=== PATIENT | female | born 1995 | race American Indian/Alaskan Native ===

== ENCOUNTER 2021-03-22 12:42 | Emergency (ER) | payer SELFPAY ==
[2021-03-22 12:47] VITALS: BP 105/65
--- NOTE | 2021-03-22 13:41 | Emergency Department Report ---
ED Lower Extremity HPI - General Chief Complaint: Extremity Injury, Lower Stated Complaint: LFT LEG PAIN Time Seen by Provider: 03/22/21 13:06 Source: EMS Mode of arrival: Stretcher Limitations: No Limitations - History of Present Illness Initial Comments: The patient was evaluated in the emergency department for symptoms described in the history of present illness. He/she was evaluated in the context of the global COVID-19 pandemic, which necessitated consideration that the patient might be at risk for infection with the virus that causes COVID-19. Institutional protocols and algorithms that pertain to the evaluation of patients at risk for COVID-19 are in a state of rapid change based on information released by regulatory bodies including the CDC and federal and state organizations. These policies and algorithms were followed during the patient's care in the emergency department. Please note that these policies, procedures and recommendations changed on a rapid basis. 25-year-old -[place] female presents to the emergency room complaining of left ankle knee and left hip pain status post fall while doing her physical training in the 3 weeks ago. Patient states that she had an MRI and they told her she needed to go home and follow-up. Patient comes here to the emergency room. She did report she went to [facility] but they have no medical records of her. Therefore patient follows up here. Patient reports she was told that she needs surgery. Complaint: hip injury, knee injury, ankle injury Onset/Timin -: week(s) Injury: Hip: Left, Knee: Left, Ankle: Left Type of Injury: other (fall) Place: work Severity scale (0 -10): 8 Worsens With: weight bearing, movement, palpation Context: fall ED Review of Systems ROS: Stated complaint: LFT LEG PAIN Other details as noted in HPI Comment: All other systems reviewed and negative ED Past Medical Hx - Past Medical History Previous Medical History?: No - Surgical History Past Surgical History?: No ED Physical Exam - General Limitations: No Limitations General appearance: alert, in no apparent distress - Head Head exam: Present: atraumatic, normocephalic - Eye Eye exam: Present: normal appearance - ENT ENT exam: Present: mucous membranes moist - Neck Neck exam: Present: normal inspection, full ROM - Respiratory Respiratory exam: Absent: respiratory distress, accessory muscle use - Expanded Lower Extremity Exam Left Hip exam: Present: full ROM, tenderness Knee exam: Present: full ROM Lower Leg exam: Present: full ROM Ankle exam: Present: full ROM, tenderness, swelling Foot/Toe exam: Present: tenderness, swelling Neuro vascular tendon exam: Present: no vascular compromise - Back Exam Back exam: Present: normal inspection, full ROM - Neurological Exam Neurological exam: Present: alert, oriented X3 - Psychiatric Psychiatric exam: Present: normal affect, normal mood - Skin Skin exam: Present: warm, dry, intact, normal color. Absent: rash ED Course Vital Signs 03/22/21 12:44 Temperature 98.5 F Pulse Rate 74 Respiratory 16 Rate Blood Pressure 105/65 [Left] O2 Sat by Pulse 100 Oximetry ED Lower Extremity MDM - Radiology Data Radiology results: report reviewed [facility] [address] [place] [address] XRay Report Signed Patient: ANGELO CLEVELAND MR#: [id number] : 1995 Acct:[id number] Age/Sex: 25 / F ADM Date: 03/22/21 Loc: ED Attending Dr: Ordering Physician: ABA RODRIGUEZ Date of Service: 03/22/21 Procedure(s): XR knee 3V LT Accession Number(s): [id number] cc: ABA RODRIGUEZ Fluoro Time In Minutes: LEFT HIP 2 VIEWS 1358 INDICATION: fall injury COMPARISON: None available. FINDINGS: No fractures or dislocations are seen. No significant arthritic changes are noted. LEFT KNEE 3 VIEWS 1352 INDICATION: fall injury COMPARISON: None available. FINDINGS: No fractures or dislocations are seen. No definite joint effusion is noted. LEFT ANKLE 4 VIEWS 1349 INDICATION: fall injury COMPARISON: None available. FINDINGS: Prominent soft tissue swelling is seen which is most noticeable medially. No fractures or dislocations are seen however. Signer Name: Dashawn Winters MD Signed: 03/22/2021 2:50 PM Workstation Name: [id number] Transcribed By: [place] Dictated By: Dashawn Winters MD Electronically Authenticated By: Dashawn Winters MD Signed Date/Time: 03/22/21 1450 DD/ 1447 TD/TT: - Medical Decision Making 25-year-old -[place] female presents to the emergency room complaining of left ankle knee and left hip pain status post fall while doing her physical training in the 3 weeks ago. Patient states that she had an MRI and they told her she needed to go home and follow-up. Patient comes here to the emergency room. She did report she went to the [facility] but they have no medical records of her. Therefore patient follows up here. Patient reports she was told that she needs surgery. X-ray of left hip left knee and left ankle. Left hip and left knee normal examination left ankle shows swelling. Discussed with patient that she is already had an MRI and it was told to her that she needed surgery. I told patient she needs to follow-up with an credit specialist not the emergency room. Discussed with patient she can take Tylenol ibuprofen for her pain. Critical care attestation.: If time is entered above; I have spent that time in minutes in the direct care of this critically ill patient, excluding procedure time. ED Disposition Clinical Impression: Left ankle pain, Left knee pain, Hip pain, left Disposition: 01 HOME / SELF CARE / HOMELESS Is pt being admited?: No Does the pt Need Aspirin: No Condition: Stable Instructions: Acute Knee Pain, Adult, [id number] Additional Instructions: X-rays are negative for any acute fracture. However he will need an MRI and a credit specialist. Referrals: PRIMARY CARE, [Primary Care Provider] - 3-5 Days ISRRAEL TIPTON MD [Staff Physician] - 3-5 Days AISLINN THOMAS MD [Staff Physician] - 3-5 Days Forms: Work/School Release Form(ED) Time of Disposition: 15:29
--- NOTE | 2021-03-22 14:54 | XRay Report ---
LEFT HIP 2 VIEWS 1358 INDICATION: fall injury COMPARISON: None available. FINDINGS: No fractures or dislocations are seen. No significant arthritic changes are noted. LEFT KNEE 3 VIEWS 1352 INDICATION: fall injury COMPARISON: None available. FINDINGS: No fractures or dislocations are seen. No definite joint effusion is noted. LEFT ANKLE 4 VIEWS 1349 INDICATION: fall injury COMPARISON: None available. FINDINGS: Prominent soft tissue swelling is seen which is most noticeable medially. No fractures or d islocations are seen however. Signer Name: aDshawn Winters MD Signed: 03/22/2021 2:50 PM Workstation Name: [id number]
--- NOTE | 2021-03-22 14:54 | XRay Report ---
LEFT HIP 2 VIEWS 1358 INDICATION: fall injury COMPARISON: None available. FINDINGS: No fractures or dislocations are seen. No significant arthritic changes are noted. LEFT KNEE 3 VIEWS 1352 INDICATION: fall injury COMPARISON: None available. FINDINGS: No fractures or dislocations are seen. No definite joint effusion is noted. LEFT ANKLE 4 VIEWS 1349 INDICATION: fall injury COMPARISON: None available. FINDINGS: Prominent soft tissue swelling is seen which is most noticeable medially. No fractures or d islocations are seen however. Signer Name: Dashawn Winters MD Signed: 03/22/2021 2:50 PM Workstation Name: [id number]
== END 2021-03-22 15:59 | disposition home or self-care (01) ==
LOC: ED 12:42
DX: M25.572 Pain in left ankle and joints of left foot (principal); M25.562 Pain in left knee; M25.552 Pain in left hip
CPT/HCPCS: 99283